=== PATIENT | female | born 1960 ===

== ENCOUNTER 2023-05-16 16:00 | Outpatient (CLI) | payer SELFPAY | END 2023-05-16 16:01 | disposition home or self-care (01) | LOC: SLEEPLAB 16:00 | PROVIDERS: ATTEND Internal Medicine | DX: G47.33 Obstructive sleep apnea (adult) (pediatric) (principal); R53.83 Other fatigue; E66.9 Obesity, unspecified; R06.83 Snoring; G47.00 Insomnia, unspecified; K21.9 Gastro-esophageal reflux disease without esophagitis; Z68.35 Body mass index [BMI] 35.0-35.9, adult | CPT/HCPCS: 95800 ==

== ENCOUNTER 2024-10-30 15:12 | Outpatient (CLI) | payer BC | END 2024-10-30 15:13 | disposition home or self-care (01) | LOC: BICMAMMO 15:12 | PROVIDERS: ATTEND Internal Medicine | DX: Z12.31 Encounter for screening mammogram for malignant neoplasm of breast (principal) | CPT/HCPCS: 77063; 77067 ==